=== PATIENT | male | born 1945 | race Caucasian/White ===

== ENCOUNTER 2018-01-20 05:29 | Observation (INO) ==
[2018-01-19 10:34] LABS: Basophils % 0.2 % (0.0-0.8); Eosinophils # 0.3 10*3/uL (0.0-0.87); Hematocrit 39.3 VOL% (42.0-52.0); Hemoglobin 13.2 GM/DL (14.0-18.0); Immature Granulocytes % 0.4 %; Immature Granulocytes Absolute 0.03 #; Lymphocytes # 1.9 10*3/uL (1.4-4.0); Lymphocytes % 23.1 % (21.2-54.2); Mean Corpuscular HGB Conc 33.6 GM/DL (32-36); Mean Corpuscular Hemoglobin 31 PG (27-34); Mean Corpuscular Volume 93.6 FL (87-102); Mean Platelet Volume 9.2 FL (9.6-12.0); Monocytes # 0.5 10*3/uL (0.11-0.8); Monocytes % 5.7 % (1.7-12.7); Neutrophils # 5.4 10*3/uL (1.4-7.4); Neutrophils % 66.6 % (38.7-73.9); Platelet Count 248 T/CUMM (130-400); White Blood Count 8.1 T/CUMM (4-12)
[2018-01-19 11:00] LABS: Calcium 9.2 MG/DL (8.5-10.1); Osmolality,Calculated 264.4 MOS/KG (273-304); Potassium 5.4 MMOL/L (3.5-5.1)
[2018-01-20] MEDS ORDERED: ceFAZolin 1,000 MG in SYRINGE 1 EACH IV ONE (06:00)
[2018-01-20] MEDS ORDERED: ceFAZolin 1,000 MG VIAL ONE ×2 (07:10→08:16)
[2018-01-20] MEDS ORDERED: DIAZEPAM 5 MG TABLET PO ONE (07:49)
[2018-01-20] MEDS ORDERED: ALBUTEROL/IPRATROPIUM 3 ML NEB RESP TX ONE (07:49)
[2018-01-20] MEDS ORDERED: FAMOTIDINE 20 MG/2 ML VIAL IV ONE ×2 (07:51→07:57)
[2018-01-20] MEDS ORDERED: FAMOTIDINE 20 MG TABLET PO ONE (07:51)
[2018-01-20] MEDS ORDERED: DIAZEPAM 5 MG TABLET ONE ×2 (07:55→07:58)
[2018-01-20] MEDS ORDERED: LACTATED RINGERS 1,000 ML IV SCH (08:00)
[2018-01-20] MEDS ORDERED: TRANEXAMIC ACID 1,000 MG/10 ML VIAL IV ONE (11:17)
[2018-01-20] MEDS ORDERED: ALBUTEROL 2.5 MG/3 ML NEB RESP TX PRN (12:35)
[2018-01-20] MEDS ORDERED: ACETAMINOPHEN 325 MG TABLET PO PRN (12:36)
[2018-01-20] MEDS ORDERED: KETOROLAC 30 MG/1 ML VIAL IV PRN (12:36)
[2018-01-20] MEDS ORDERED: MAGNESIUM HYDROXIDE SUSP 30 ML UDCUP PO PRN (12:36)
[2018-01-20] MEDS ORDERED: ONDANSETRON 4 MG/2 ML VIAL IV PRN ×2 (12:36→12:50)
[2018-01-20] MEDS ORDERED: MORPHINE 4 MG/1 ML VIAL IV PRN (12:36)
[2018-01-20] MEDS ORDERED: SEVOFLURANE 1 UNIT/15 MINUTE INH ONE (12:53)
[2018-01-20] MEDS ORDERED: PROPOFOL 200 MG/20 ML VIAL IV ONE (12:53)
[2018-01-20] MEDS ORDERED: fentaNYL 100 MCG/2 ML VIAL ONE (12:54)
[2018-01-20] MEDS: HYDROmorphone 2 MG/1 ML VIAL IV PRN ×4 (12:54→13:41)
[2018-01-20] MEDS ORDERED: MIDAZOLAM 2 MG/2 ML VIAL ONE (12:54)
[2018-01-20] MEDS ORDERED: GLYCOPYRROLATE 0.4 MG/2 ML VIAL ONE ×2 (12:55)
[2018-01-20] MEDS ORDERED: ACETAMINOPHEN 1,000 MG/100 ML VIAL IV ONE (12:55)
[2018-01-20] MEDS ORDERED: PHENYLEPHRINE 1 MG/10 ML SYRINGE IV ONE (12:55)
[2018-01-20] MEDS ORDERED: LACTATED RINGERS 1,000 ML IV ONE (12:55)
[2018-01-20] MEDS ORDERED: SODIUM CHLORIDE 0.9% 1,000 ML IV SCH (13:00)
[2018-01-20] MEDS: ceFAZolin 1,000 MG in SYRINGE 1 EACH IV SCH (18:16)
[2018-01-20] MEDS: PANTOPRAZOLE 40 MG TABLET PO SCH (21:15)
[2018-01-21] MEDS: MORPHINE 4 MG/1 ML VIAL IV PRN ×3 (01:40→09:29)
[2018-01-21] MEDS: ceFAZolin 1,000 MG in SYRINGE 1 EACH IV SCH (01:43)
[2018-01-21 02:45] LABS: Apearance,Urine CLEAR (Clear); Bilirubin,Urine Negative (Negative); Blood, Urine Negative (Negative); Glucose,Urine (UA) Negative (Negative); Ketones,Urine Negative (Negative); Mucus,Urine Occasional /LPF (Occasional); Nitrite,Urine Negative (Negative); Protein,Urine Negative; Urine Color Yellow (Yellow); Urine Specific Gravity 1.006 (1.001-1.035); Urine Urobilinogen < 2.0 EU/DL (0.2-1.0)
[2018-01-21 05:51] LABS: Basophils % 0.2 % (0.0-0.8); Eosinophils # 0.2 10*3/uL (0.0-0.87); Eosinophils % 2.3 % (0.00-10.9); Hematocrit 34.8 VOL% (42.0-52.0); Hemoglobin 12.2 GM/DL (14.0-18.0); Immature Granulocytes % 0.5 %; Immature Granulocytes Absolute 0.05 #; Lymphocytes # 1.6 10*3/uL (1.4-4.0); Lymphocytes % 17.2 % (21.2-54.2); Mean Corpuscular HGB Conc 35.1 GM/DL (32-36); Mean Corpuscular Hemoglobin 32 PG (27-34); Mean Corpuscular Volume 91.3 FL (87-102); Mean Platelet Volume 9.5 FL (9.6-12.0); Monocytes # 0.5 10*3/uL (0.11-0.8); Monocytes % 5.6 % (1.7-12.7); Neutrophils % 74.2 % (38.7-73.9); Platelet Count 243 T/CUMM (130-400); Red Blood Count 3.81 MC/CUMM (3.8-5.5); Red Cell Distribution Width 12.9 % (9.3-17.3); White Blood Count 9.4 T/CUMM (4-12)
[2018-01-21 06:17] LABS: Calcium 8.2 MG/DL (8.5-10.1); Osmolality,Calculated 267.1 MOS/KG (273-304); Potassium 4.3 MMOL/L (3.5-5.1)
[2018-01-21 07:52] VITALS: BP 123/55
[2018-01-21] MEDS ORDERED: MULTIVITAMIN (BEROCCA) TABLET PO SCH (09:00)
[2018-01-21] MEDS ORDERED: ASPIRIN EC 81 MG TABLET PO SCH (09:00)
[2018-01-21] MEDS ORDERED: NEBIVOLOL 5 MG TABLET PO SCH (09:00)
[2018-01-21] MEDS ORDERED: TAMSULOSIN 0.4 MG CAPSULE PO SCH (09:00)
[2018-01-21] MEDS ORDERED: MULTIVITAMIN (CENTRUM) TABLET PO SCH (09:00)
[2018-01-21] MEDS ORDERED: ALPRAZolam 0.5 MG TABLET PO SCH (09:00)
[2018-01-21] MEDS ORDERED: SERTRALINE 100 MG TABLET PO SCH (09:00)
[2018-01-21] MEDS: PANTOPRAZOLE 40 MG TABLET PO SCH (09:30)
== END 2018-01-21 12:10 | disposition home or self-care (01) ==
LOC: N.3E 05:29 → N.OR 05:29 → N.SDSINP 05:35 → N.3E 14:12
PROVIDERS: ADMIT Orthopaedic Surgery; ATTEND Orthopaedic Surgery

== ENCOUNTER 2020-02-09 10:09 | Inpatient (IN) ==
[2020-02-09] MEDS ORDERED: ONDANSETRON 4 MG/2 ML VIAL IV PRN (10:36)
[2020-02-09] MEDS ORDERED: ACETAMINOPHEN 325 MG TABLET PO PRN (10:36)
[2020-02-09 11:20] LABS: Basophils % 0.1 % (0.0-0.8); Hemoglobin 13.9 GM/DL (14.0-18.0); Immature Granulocytes % 1.5 %; Lymphocytes # 1.1 10*3/uL (1.4-4.0); Lymphocytes % 5.4 % (21.2-54.2); Mean Corpuscular HGB Conc 33.1 GM/DL (32-36); Mean Corpuscular Volume 93.3 FL (87-102); Mean Platelet Volume 8.9 FL (9.6-12.0); Monocytes % 5.1 % (1.7-12.7); Neutrophils % 87.9 % (38.7-73.9); Platelet Count 225 T/CUMM (130-400); Red Cell Distribution Width 14.5 % (9.3-17.3); White Blood Count 19.6 T/CUMM (4-12)
[2020-02-09 11:37] LABS: Albumin 3.2 G/DL (3.4-5.0); Bilirubin,Total 1.3 MG/DL (0.2-1.0); Calcium 9.2 MG/DL (8.5-10.1); Osmolality,Calculated 266.5 MOS/KG (273-304); Total Protein 7.2 G/DL (6.4-8.3)
[2020-02-09] MEDS: ENOXAPARIN 40 MG/0.4 ML SYRINGE SUBCUT SCH (12:33)
[2020-02-09] MEDS: SODIUM CHLORIDE 0.9% 1,000 ML IV SCH ×2 (12:33→22:30)
[2020-02-09] MEDS ORDERED: ceFAZolin 1,000 MG in SYRINGE 1 EACH IV ONE (13:39)
[2020-02-09] MEDS: TIOTROPIUM OLODATEROL INH SCH (14:42)
[2020-02-09] MEDS ORDERED: ALBUTEROL 2.5 MG/3 ML NEB RESP TX PRN (15:00)
[2020-02-09] MEDS ORDERED: traMADol 50 MG TABLET PO PRN (15:24)
[2020-02-09] MEDS: VANCOMYCIN INJ 1,250 MG in SODIUM CHLORIDE 0.9% 250 ML IV SCH (15:42)
[2020-02-09] MEDS: ALPRAZolam 0.5 MG TABLET PO SCH (20:40)
[2020-02-09] MEDS: DOCUSATE SODIUM 100 MG CAPSULE PO SCH (20:40)
[2020-02-10] MEDS ORDERED: LIDOCAINE 1% 20 ML VIAL ONE (05:54)
[2020-02-10 06:23] LABS: Basophils % 0.1 % (0.0-0.8); Eosinophils # 0.1 10*3/uL (0.0-0.87); Eosinophils % 0.5 % (0.00-10.9); Hematocrit 35.7 VOL% (42.0-52.0); Hemoglobin 11.6 GM/DL (14.0-18.0); Immature Granulocytes Absolute 0.11 #; Lymphocytes % 8.9 % (21.2-54.2); Mean Corpuscular HGB Conc 32.5 GM/DL (32-36); Mean Corpuscular Volume 94.9 FL (87-102); Mean Platelet Volume 9.6 FL (9.6-12.0); Monocytes % 6.9 % (1.7-12.7); Neutrophils % 82.6 % (38.7-73.9); Platelet Count 196 T/CUMM (130-400); Red Blood Count 3.76 MC/CUMM (3.8-5.5); Red Cell Distribution Width 14.6 % (9.3-17.3)
[2020-02-10 07:03] LABS: Calcium 8.1 MG/DL (8.5-10.1); Osmolality,Calculated 273.8 MOS/KG (273-304)
[2020-02-10] MEDS ORDERED: ceFAZolin 1,000 MG VIAL ONE (07:52)
[2020-02-10] MEDS ORDERED: HYDROmorphone 2 MG/1 ML VIAL IV PRN (08:09)
[2020-02-10] MEDS ORDERED: propofoL 200 MG/20 ML VIAL IV ONE (08:23)
[2020-02-10] MEDS ORDERED: LIDOCAINE 2% 5 ML VIAL ONE (08:24)
[2020-02-10] MEDS ORDERED: fentaNYL 100 MCG/2 ML VIAL ONE (08:24)
[2020-02-10] MEDS ORDERED: ETOMIDATE 40 MG/20 ML VIAL IV ONE (08:24)
[2020-02-10] MEDS: MILK THISTLE 500 MG PO SCH ×2 (09:00→11:56)
[2020-02-10] MEDS: MULTIVITAMIN (BEROCCA) TABLET PO SCH (09:33)
[2020-02-10] MEDS: SERTRALINE 100 MG TABLET PO SCH (09:33)
[2020-02-10] MEDS: ASPIRIN EC 81 MG TABLET PO SCH (09:33)
[2020-02-10] MEDS: LEVOTHYROXINE 75 MCG TABLET PO SCH (09:33)
[2020-02-10] MEDS: OMEGA 3 ACID ETHYL ESTERS 1 GM CAPSULE PO SCH (09:33)
[2020-02-10] MEDS: DOCUSATE SODIUM 100 MG CAPSULE PO SCH ×2 (09:33→21:43)
[2020-02-10] MEDS: MULTIVITAMIN (CENTRUM) TABLET PO SCH (09:33)
[2020-02-10] MEDS: PANTOPRAZOLE 40 MG TABLET PO SCH (09:33)
[2020-02-10] MEDS: TAMSULOSIN 0.4 MG CAPSULE PO SCH (09:33)
[2020-02-10] MEDS: ALPRAZolam 0.5 MG TABLET PO SCH ×2 (09:35→21:43)
[2020-02-10] MEDS: VANCOMYCIN INJ 1,250 MG in SODIUM CHLORIDE 0.9% 250 ML IV SCH (10:43)
[2020-02-10] MEDS: ENOXAPARIN 40 MG/0.4 ML SYRINGE SUBCUT SCH (11:54)
[2020-02-10] MEDS: TIOTROPIUM OLODATEROL INH SCH (15:48)
[2020-02-10] MEDS: SODIUM CHLORIDE 0.9% 1,000 ML IV SCH (18:15)
[2020-02-11] MEDS: SODIUM CHLORIDE 0.9% 1,000 ML IV SCH ×3 (00:41→21:03)
[2020-02-11] MEDS: VANCOMYCIN INJ 1,250 MG in SODIUM CHLORIDE 0.9% 250 ML IV SCH ×2 (03:25→22:55)
[2020-02-11] MEDS: LEVOTHYROXINE 75 MCG TABLET PO SCH (06:10)
[2020-02-11] MEDS: MULTIVITAMIN (CENTRUM) TABLET PO SCH (09:16)
[2020-02-11] MEDS: ASPIRIN EC 81 MG TABLET PO SCH (09:16)
[2020-02-11] MEDS: MULTIVITAMIN (BEROCCA) TABLET PO SCH (09:16)
[2020-02-11] MEDS: OMEGA 3 ACID ETHYL ESTERS 1 GM CAPSULE PO SCH (09:16)
[2020-02-11] MEDS: DOCUSATE SODIUM 100 MG CAPSULE PO SCH ×2 (09:16→21:01)
[2020-02-11] MEDS: TAMSULOSIN 0.4 MG CAPSULE PO SCH (09:16)
[2020-02-11] MEDS: ALPRAZolam 0.5 MG TABLET PO SCH ×2 (09:16→21:01)
[2020-02-11] MEDS: PANTOPRAZOLE 40 MG TABLET PO SCH (09:16)
[2020-02-11] MEDS: SERTRALINE 100 MG TABLET PO SCH (09:16)
[2020-02-11] MEDS: MILK THISTLE 500 MG PO SCH (09:17)
[2020-02-11] MEDS: ENOXAPARIN 40 MG/0.4 ML SYRINGE SUBCUT SCH (12:00)
[2020-02-11] MEDS: TIOTROPIUM OLODATEROL INH SCH (13:08)
[2020-02-11] MEDS ORDERED: POTASSIUM CHLORIDE 20 MEQ TABLET PO ONE (16:01)
[2020-02-12] MEDS: SODIUM CHLORIDE 0.9% 1,000 ML IV SCH (00:10)
[2020-02-12 06:01] LABS: Basophils % 0.4 % (0.0-0.8); Eosinophils # 0.1 10*3/uL (0.0-0.87); Eosinophils % 1.1 % (0.00-10.9); Hematocrit 34.6 VOL% (42.0-52.0); Hemoglobin 11.6 GM/DL (14.0-18.0); Immature Granulocytes % 2.8 %; Lymphocytes # 1.7 10*3/uL (1.4-4.0); Lymphocytes % 15.7 % (21.2-54.2); Mean Corpuscular HGB Conc 33.5 GM/DL (32-36); Monocytes % 5.4 % (1.7-12.7); Neutrophils % 74.6 % (38.7-73.9); Platelet Count 217 T/CUMM (130-400); Red Blood Count 3.76 MC/CUMM (3.8-5.5); White Blood Count 10.8 T/CUMM (4-12)
[2020-02-12 06:14] LABS: Calcium 8.5 MG/DL (8.5-10.1); Osmolality,Calculated 268.2 MOS/KG (273-304)
[2020-02-12] MEDS: LEVOTHYROXINE 75 MCG TABLET PO SCH (06:34)
[2020-02-12] MEDS ORDERED: POTASSIUM CHLORIDE 20 MEQ TABLET PO SCH (09:00)
[2020-02-12] MEDS: MULTIVITAMIN (BEROCCA) TABLET PO SCH (09:18)
[2020-02-12] MEDS: DOCUSATE SODIUM 100 MG CAPSULE PO SCH (09:18)
[2020-02-12] MEDS: OMEGA 3 ACID ETHYL ESTERS 1 GM CAPSULE PO SCH (09:18)
[2020-02-12] MEDS: MULTIVITAMIN (CENTRUM) TABLET PO SCH (09:19)
[2020-02-12] MEDS: ALPRAZolam 0.5 MG TABLET PO SCH (09:19)
[2020-02-12] MEDS: PANTOPRAZOLE 40 MG TABLET PO SCH (09:19)
[2020-02-12] MEDS: MILK THISTLE 500 MG PO SCH (09:20)
[2020-02-12] MEDS: TAMSULOSIN 0.4 MG CAPSULE PO SCH (09:20)
[2020-02-12] MEDS: SERTRALINE 100 MG TABLET PO SCH (09:20)
[2020-02-12] MEDS: ASPIRIN EC 81 MG TABLET PO SCH (09:20)
[2020-02-12] MEDS ORDERED: SULFAMETHOX/TRIMETHOPRIM 800-160 MG TABLET PO ONE (11:48)
[2020-02-12 12:26] VITALS: BP 160/93
== END 2020-02-12 12:47 | disposition home health service (06) | DRG 603 ==
LOC: N.3E 10:38
PROVIDERS: ADMIT Internal Medicine; ATTEND Internal Medicine